=== PATIENT | male | born 1950 | race Caucasian/White ===

== ENCOUNTER 2016-11-16 01:17 | Inpatient (IN) | payer OTHER ==
--- NOTE | ~2016-11-16 | CN ---
Consultation Report [facility] [address] [place]. [address] NAME: BRAULIO PETER : 50 STATUS : ADM Kristin PAT#: [id number] AGE: 66 ADM/REG DATE : 11/16/16 MR#: [id number] REPORT SERV DATE: 11/16/16 DICTATED BY: DATE: REPORT STATUS : Draft TRANSCRIBED BY: MODL DATE: 11/16/16 NEUROLOGY CONSULTATION DATE OF CONSULTATION: 11/16/2016 REASON FOR CONSULT: Possible stroke. HISTORY OF PRESENT ILLNESS: This is a 66-year-old male who presented to [facility] secondary to left upper extremity weakness, where the patient reports the symptoms started roughly 1800 hours on 11/15/2016. Reports there is some improvement of the symptoms after onset since the hospitalization. Denies any numbness and denies any lower extremity involvement. Denies any more significant difficulty walking and denies any more significant dysarthria, and denies any numbness or weakness in the face. The patient denies any language difficulties and denies any worsening vision difficulties. The patient does have history of previous stroke with resulting left hemiparesis. Secondary to that, the patient normally ambulates with a walker as well as wheelchair. The patient denies any recent illness, fever, chills, nausea, vomiting, chest pain, or shortness of breath. The patient reports compliance with medication and denies any recent medication changes. PAST MEDICAL HISTORY: Significant for type 2 diabetes, as well as a history of stroke in the past with left-sided hemiparesis, previous history of TIA, history of hypertension, coronary artery disease, status post coronary artery bypass surgery, as well as a history of prostate cancer. SOCIAL HISTORY: Denies tobacco, alcohol, recreational drug usage. FAMILY HISTORY: Significant for diabetes, stroke, prostate cancer. ALLERGIES: AT THE TIME OF EVALUATION, THE PATIENT REPORTS ALLERGY TO CIPROFLOXACIN WELL AN IODINE CONTRAST DYE AND IBUPROFEN. MEDICATIONS: The patient was noted to have home medications that consist of aspirin, Plavix, fenofibrate, Proscar, Prozac, Neurontin, [place], Toujeo, Humalog, Imdur, Cozaar, Glucophage, Toprol, Flomax, Restoril, vitamin C, vitamin B12. REVIEW OF SYSTEMS: Negative except for those mentioned in the HPI. PHYSICAL EXAMINATION: VITAL SIGNS: Since the hospital admission, the patient was noted to have vital signs with T max of 98.2, heart rate of 64, respirations of 16, blood pressure of 126/65. GENERAL: The patient is well developed, well nourished, in no acute distress. CARDIOVASCULAR: Regular rate and rhythm. No carotid bruits were otherwise auscultated. PULMONARY: Clear to auscultation bilaterally. Consultation Report [address] [place]. [address] NAME: BRAULIO PETER : 50 STATUS : ADM Kristin PAT#: [id number] AGE: 66 ADM/REG DATE : 11/16/16 MR#: [id number] REPORT SERV DATE: 11/16/16 DICTATED BY: DATE: REPORT STATUS : Draft TRANSCRIBED BY: MODRenee DATE: 11/16/16 NEUROLOGICAL: Generally, the patient is alert, oriented to person, place, year, month, and follows simple and 2-step commands. Mild dysarthria was noted. No significant aphasia was noted. Intact registration and some difficulty with recall. Cranial nerves II through XII, pupils equal, round, and reactive to light. Extraocular eye movement was noted to be intact. Intact peripheral vision. No visual neglect was noted. The patient was noted to have decreased nasolabial fold on the left as well as a mild left-sided weakness. Otherwise, the tongue was mildly deviated to the right. Symmetrical facial sensation according to the patient. Mild decreased hearing in bilateral ears. The patient demonstrated 5/5 right upper and right lower extremity strength. Otherwise, the patient noted to have 4/5 left lower extremity strength and 4-/5 left upper extremity strength. Reports symmetrical sensation bilaterally. Deep tendon reflex was 3+ in the left upper and left lower extremity, and 2+ to 3 in the right upper and right lower extremity. Upgoing toe and bilateral plantar reflexes. Normal kiwxbx-of-xdph examination without ataxia in the right upper extremity. The patient normally ambulates with a walker or a wheelchair, as a result, gait evaluation was not performed. LABORATORY STUDIES: At the time of evaluation demonstrated sodium of 140, potassium 4.1, chloride 108, bicarb 22, BUN of 18, creatinine 0.93, glucose of 283, calcium of 8.5, magnesium 1.8. White blood cell count of 6.7, hemoglobin of 12.5, hematocrit of 36.5, and platelet count of 210. CT scan of the brain demonstrated subtle hypoattenuation in the right parietal area subcortically, bilateral basal ganglia calcification was noted, and possible atherosclerotic disease in vertebrobasilar system, mild generalized atrophy was otherwise seen. IMPRESSION: Left upper extremity weakness, symptoms improving. NIH stroke scale of 4 with symptom onset at 1800 hours on 11/15/2016. Concern for possible stroke. We will continue aspirin, Plavix, as well as a statin. Physical therapy and occupational therapy. We will obtain MRI of the brain as well as MRA of the head and neck for evaluation. Echocardiogram which is pending. We will also obtain fasting lipid panel and hemoglobin A1c with morning labs. RECOMMENDATIONS: 1. Fasting lipid panel and hemoglobin A1c. 2. PT/OT. 3. MRI of the brain, which is pending. 4. MRA of the head and neck, which is also pending. 5. Echocardiogram. 6. We will continue aspirin, Plavix, as well as the statin. [facility]/CHANTELL Claude Paulino MD Consultation Report [address] [address] NAME: BRAULIO PETER : 50 STATUS : ADM Kristin PAT#: [id number] AGE: 66 ADM/REG DATE : 11/16/16 MR#: [id number] REPORT SERV DATE: 11/16/16 DICTATED BY: DATE: REPORT STATUS : Draft TRANSCRIBED BY: CHANTELL DATE: 11/16/16 / [id number] CC: Jesus Johnson M.D. Edgardo Melendez M.D.
--- NOTE | ~2016-11-16 | HP ---
History And Physical [address] [place]. [address] NAME: BRAULIO HILL : 50 STATUS : ADM Kristin PAT#: [id number] AGE: 66 ADM/REG DATE : 11/16/16 MR#: [id number] REPORT SERV DATE: 11/16/16 DICTATED BY: JULIUS ESCALERA DATE: 11/16/16 REPORT STATUS : Draft TRANSCRIBED BY: MODL DATE: 11/16/16 DATE OF ADMISSION: 11/16/2016 CHIEF COMPLAINT: Left arm weakness. HISTORY OF PRESENT ILLNESS: This is a 66-year-old male with history of diabetes mellitus, essential hypertension, and a prior history of left-sided CVA who presents to the emergency room at [facility] with the above-mentioned complaint. History is obtained from Mr. Hill, his family who is at bedside, and reviewing data available on the [employer] system. According to Mr. Hill, he was watching television around 1800 hours yesterday in the evening when he got up to go somewhere in his house and found that he was unable to move his left arm. This was not preceded by any significant event and he thought he might have done something to the arm. He told his he needed a heating pad and tried to relieve himself. Unfortunately, there was profound weakness in the arm. He could not even raise it and finally the family was able to convince him to come to the emergency room to be evaluated. Again, he did have little headache but according to him this was not unusual. He did not have any chest pains or falls or syncopal episodes or any other symptoms associated with this. In the emergency room, initial workup revealed an unremarkable CT scan of the brain and chest. EKG was unremarkable without any new changes. He had uncontrolled diabetes with hyperglycemia. His left arm symptoms continued and Hospitalist Service is asked to admit him for further evaluation and treatment. Unfortunately, he presented to the ER about 0100 hours which was well outside the window of opportunity. At the time of my evaluation, he denied any chest pain, palpitations, or orthopnea. He had no cough, hemoptysis, night sweats, or weight loss. He has had no falls or loss of consciousness. No history of fevers, chills, nausea, vomiting, diarrhea. No history of recent hematemesis, hematochezia, or hematuria. No other history of recent travel or exposures. PAST MEDICAL HISTORY: Significant for history of diabetes mellitus type 2, history of CVA in the past with residual left-sided weakness both in his upper and lower extremities, history of essential hypertension, coronary artery disease with myocardial infarction, status post CABG. He also has a history of prostate cancer, status post external beam radiation therapy. SOCIAL HISTORY: He does not smoke, does not use alcohol or recreational drugs. FAMILY HISTORY: Noncontributory. MEDICATIONS: At home were reviewed by me in the chart today and reordered by me. History And Physical [address] [address] NAME: BRAULIO HILL : 50 STATUS : ADM Kristin PAT#: [id number] AGE: 66 ADM/REG DATE : 11/16/16 MR#: [id number] REPORT SERV DATE: 11/16/16 DICTATED BY: JULIUS ESCALERA DATE: 11/16/16 REPORT STATUS : Draft TRANSCRIBED BY: CHANTELL DATE: 11/16/16 REVIEW OF SYSTEMS: As in history of present illness. All other systems were reviewed in detail and are quite unremarkable. PHYSICAL EXAMINATION: GENERAL: This is a pleasant 66-year-old, not in any acute distress. HEENT: His head is atraumatic, normocephalic. He is alert, awake, oriented to time, place, and person. Pupils are equal, reacting to light and accommodating. External ocular muscles are intact. Membranes are moist and pink. Sclerae are nonicteric. NECK: Supple with no jugular venous distention, lymphadenopathy, or thyromegaly. LUNGS: Clear to auscultation with no wheezes, rubs, or crackles. HEART: Heart sounds were regular with no murmurs, rubs, or gallops. ABDOMEN: Soft, nontender. Bowel sounds are present. EXTREMITIES: No cyanosis, clubbing, or edema. The left upper extremity showed marked weakness. He was unable to raise the extremity or the arm off the bed. He was able to move his forearm towards his face but was difficult to raise it above his shoulder level. His left lower extremity had no new weakness. Speech was not affected today. Higher functions appeared intact. VITAL SIGNS: His vital signs today showed a temperature of 98.4, pulse 66, and respirations were 19 a minute, blood pressure was 132/71, oxygen saturations were 98%, breathing 2 L of oxygen via nasal cannula. LABORATORY DATA: Reviewed on the [employer] system showed normal CMP with a blood glucose of 347. Liver numbers appeared within normal limits. Troponin was 0.02. CBC showed a normal white blood cell count of 6700, hemoglobin was 12.5, hematocrit 36.5, and platelet count was 210,000. Films of the chest x-ray and CT scan of the brain were reviewed by me on the PACS today and interpreted by me. Per my interpretation, the chest x-ray did not show any lobar consolidations or pleural effusions. CT of the brain did not show any acute intracranial process at this time. 12-lead EKG done in the emergency room was reviewed and interpreted by me. There is normal sinus rhythm with a rate of 71 and has a left anterior fascicular block. IMPRESSION: 1. Acute left-sided weakness. 2. Cerebrovascular accident. 3. Diabetes mellitus type 2 with hyperglycemia. 4. History of prior cerebrovascular accident. 5. Essential hypertension. 6. Coronary artery disease with history of myocardial infarction, status post CABG. 7. History of prostate cancer. PLAN: We will admit Mr. Hill to the Hospitalist Service with Telemetry for close monitoring. We will follow non-tPA stroke orders, consult Neurology Service to see him in the morning. Unfortunately, he is outside the window of opportunity for any thrombolytic treatment. We will treat him conservatively. Meanwhile, we will go ahead and get an MRI and an MRA of his brain and also an echocardiogram. He is on aspirin which we will make to History And Physical [address] [address] NAME: BRAULIO HILL : 50 STATUS : ADM Kristin PAT#: [id number] AGE: 66 ADM/REG DATE : 11/16/16 MR#: [id number] REPORT SERV DATE: 11/16/16 DICTATED BY: JULIUS ESCALERA DATE: 11/16/16 REPORT STATUS : Draft TRANSCRIBED BY: MODRenee DATE: 11/16/16 a full dose. Continue his Plavix and statins and other therapy. We will also start him on blood sugar control with NovoLog insulin given subcutaneously. He will be on unfractionated heparin for DVT prophylaxis while he is here. I have discussed the above plans with the patient and his family. Their questions were answered. They are agreeable to the above recommendations. Hospitalist Service will be following him during his stay here. /CHANTELL Julius Escalera M.D. / [id number] CC: MD Edgardo Padilla M.D.
--- NOTE | ~2016-11-16 | DS ---
Discharge Summary [facility] [address] [facility] [place]. [address] NAME: BRAULIO PETER : 50 STATUS : DIS IN PAT#: [id number] AGE: 66 ADM/REG DATE : 11/16/16 MR#: [id number] REPORT SERV DATE: 11/22/16 DICTATED BY: CHELSEY TANG DATE: 11/21/16 REPORT STATUS : Draft TRANSCRIBED BY: MODL DATE: 11/21/16 ADMISSION DATE: 11/16/2016 DISCHARGE DATE: 11/21/2016 The patient is a 66-year-old male with a history of hypertension, diabetes, CVA in the pontine region, who presented to the emergency room with a complaint of left weakness. For further details, please refer to H and P dictated by Dr. Mcfadden on 11/16/2016. HOSPITAL COURSE: Upon presentation to the emergency room, the patient was noted to have symptoms consistent with an acute stroke. Brain MRI and CT was obtained and Neurology was consulted. For further details, please refer to the neurology consultation note dictated on 10/10/2016. I assumed care of the patient on 11/20/2016. At the time of my assumption of care, the patient was hemodynamically stable. He did have residual left sided weakness. The patient had been started on appropriate medications by Neurology and he was awaiting placement in a rehab facility. At rehab, the patient has received insurance approval for rehab facility. Given his hemodynamics stability completion of workup, the patient will be discharged to rehab for the next phase of his management. Plan has been discussed with the patient who voices understanding and is agreeable with this plan. DISCHARGE DIAGNOSES: 1. CVA right medullary infarction. 2. Diabetes type 2. 3. Hypertension. DISCHARGE EXAMINATION: VITAL SIGNS: Blood pressure 110/67, pulse of 64, respirations 16, O2 saturation 96% on room air, temperature 97.8. GENERAL: The patient lying in bed, in no acute distress. Left-sided weakness observed. HEENT: Normocephalic and atraumatic. Extraocular motors intact. The patient has symmetric facial features. NECK: Trachea is midline and symmetric. No JVD. No thyromegaly noted. CHEST: Nontender to palpation. CARDIOVASCULAR: Regular rate and rhythm. S1, S2. I did not appreciate any murmurs. LUNGS: Clear to auscultation bilaterally. The patient has no added breath sounds. ABDOMEN: Obese. Positive bowel sounds. Nontender. Nondistended. EXTREMITIES: No cyanosis, no clubbing. No edema. NEURO: Alert and oriented x3. Left-sided weakness noted in the upper and lower extremities. DISCHARGE MEDICATIONS: Ascorbic acid 1000 mcg p.o. daily, aspirin 325 mg p.o. daily, Atorvastatin 80 mg p.o. daily, Plavix 75 mg p.o. daily, vitamin B12 1000, docusate 200 mg p.o. twice a day, fenofibrate 160 mg p.o. daily, finasteride 5 mg p.o. daily, Prozac 20 mg p.o. daily, gabapentin 900 mg p.o. at bedtime, gabapentin 600 mg p.o. every morning, Toujeo 65 units subcu at bedtime, isosorbide mononitrate 50 mg p.o. at bedtime, losartan 100 mg p.o. daily, mag ox 800 mg p.o. twice a day, Toprol-XL 25 mg p.o. twice a, pantoprazole 40 mg p.o. at breakfast, and Flomax 0.4 mg p.o. daily. Discharge Summary [address] [address] NAME: BRAULIO PETER : 50 STATUS : DIS IN PAT#: [id number] AGE: 66 ADM/REG DATE : 11/16/16 MR#: [id number] REPORT SERV DATE: 11/22/16 DICTATED BY: CHELSEY TANG DATE: 11/21/16 REPORT STATUS : Draft TRANSCRIBED BY: CHANTELL DATE: 11/21/16 IMAGING STUDIES: 1. Brain CT without contrast. Impression: Cogl-fs-swkqtbre generalized atherosclerotic changes identified. No evidence of definite acute infection. There is a subtle area of bridging with sulci on the right, see imaging studies. This could conceivably represent a small subcortical infarction, bony calvarium unremarkable, heavy atherosclerotic changes, vertebral basilar artery. A preliminary report was sent. 2. Carotid Doppler. Impression: Left carotid demonstrate category 1 less than 50% stenosis. Right carotid is not visible suggesting atherosclerotic blockages and may also be congenital congenitally underdeveloped. Right subclavian velocity 93 cm/second. The left ventricular grade subclavian velocity 120 cm/sec. 3. A KYLER with ejection fraction of 55-65% performed on 11/16/2016. 4. MRI/MRA head without contrast stroke protocol. 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 No evidence of cut off in the mean basilar luminal stenosis or stenosis is seen. MRI of brain. 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 DISPOSITION: The patient will be discharged to [facility] for rehab. ACTIVITY: As tolerated. DIET: Diabetic diet. Greater than 30 minutes was spent on counseling, coordinating discharge, dictation of note, medication reconciliation, writing prescription. [facility]/CHANTELL Chelsey Tang MD / [id number] CC: MD Edgardo Warner M.D.
--- NOTE | ~2016-11-16 | OP ---
Record Of [facility] [address] [place]. [address] NAME: BRAULIO HILL : 50 STATUS : ADM IN PAT#: [id number] AGE: 66 ADM/REG DATE : 11/16/16 MR#: [id number] REPORT SERV DATE: 11/19/16 DICTATED BY: MICHI ALBERT DATE: 11/19/16 REPORT STATUS : Draft TRANSCRIBED BY: CHANTELL DATE: 11/19/16 DATE OF PROCEDURE: 11/19/2016 PREOPERATIVE DIAGNOSIS: 1. Recent right hemispheric stroke. 2. Discrepant study results with MRA suggestive of high-grade right internal carotid artery stenosis and ultrasound suggesting a ultipt-ge-to right carotid artery stenosis. POSTOPERATIVE DIAGNOSIS: 1. Recent right hemispheric stroke. 2. No right carotid stenosis. PROCEDURE: 1. Ultrasound-guided percutaneous access, right common femoral artery. 2. Arch aortogram. 3. Selective catheterization of the right common carotid artery with right carotid arteriogram. SURGEON: Michi Albert M.D. VALIDATION INTERN: [place]. ANESTHESIA: Local with MAC. ESTIMATED BLOOD LOSS: 10 mL. CONTRAST: 51 mL. IV FLUIDS: 800 mL. COMPLICATIONS: None. INDICATION: Mr. Hill is a pleasant 66-year-old man admitted to the hospital with a recent right hemispheric stroke. He underwent an MRA that suggested a high-grade ulcerated plaque. He had a carotid ultrasound, however that was suggestive of little to no carotid stenosis on the right. He is brought for arteriogram for definitive diagnosis with stent placed in the right carotid artery if needed. DETAILS OF PROCEDURE: After informed consent was obtained, the patient was brought to the endovascular suite and placed in supine position. After administration of IV sedation, he was prepped and draped in the usual sterile fashion. A time-out was performed. I commenced the procedure of ultrasound-guided percutaneous access of the right common femoral artery. This was done after anesthetizing the right groin with local anesthetic. A permanent image of the artery documenting patency was saved and stored in the patient's chart. I accessed with a micropuncture needle and passed a micropuncture wire and confirmed within the artery under fluoro. I then upsized to a 5-Pakistani sheath over a Bentson wire. The Bentson wire Record Of [place] [address] [facility] [place] [place]. [address] NAME: BRAULIO HILL : 50 STATUS : ADM IN PAT#: [id number] AGE: 66 ADM/REG DATE : 11/16/16 MR#: [id number] REPORT SERV DATE: 11/19/16 DICTATED BY: MICHI ALBERT. DATE: 11/19/16 REPORT STATUS : Draft TRANSCRIBED BY: MODL DATE: 11/19/16 and [place] flush catheter were advanced to the aortic arch. We systemically heparinized. I then performed an arch aortogram that shows a patent nonaneurysmal aortic arch. There is normal arch vessel configuration. It is a type 1 arch. The origins of the innominate left carotid and the left subclavian artery were widely patent with no stenosis. 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 After that, we used a Glidewire and a vertebral catheter to engage the innominate and then the right common carotid artery. Right carotid arteriogram was performed which showed a widely patent common carotid artery with no stenosis. The bifurcation was patent in multiple views with no stenosis whatsoever or thrombus or ulceration. External carotid artery is widely patent as well. The internal carotid artery is also patent with no plaque, stenosis, thrombus, or ulceration. Intracranial views of the internal carotid artery also showed a patent artery with no stenosis. After that, wires and catheters were removed. The right femoral access was closed with ProGlide closure device. The patient tolerated the procedure well without complications. I was present for this entire case as dictated. [facility]/CHANTELL Michi Albert M.D. / [id number] CC: Munir Caro M.D.
[~2016-11-16 01:17] MED LIST: ACET500CAP PO; ADVIL PO; ASAB PO; AVANDAMET1 TA4 PO; COZAAR100 MG PO; CYANO1000T PO; DIOVAN HC2 PO; DURICEF PO; FLOMAX4 PO; FORTAMET500 MG PO; GLUCOPHAGE1000 MG PO; HUMALOG SC; ISOSORBIDE 30 MG PO; LANTUS SC; LEVEMIR SC; LIPITOR40 PO; LOFIBRA160 MG PO; LOP25 PO; LORTAB10 PO; NEUR300 PO; NEUR600 PO; NOVOLOG SC; PERCOCET1 TA4 PO; PLAVIX PO; PRINZIDE1 TA1 PO; PROZAC PO; REST15 PO; TOPXL25 PO; TOUJEO SC; VITAMIN D31000 UNIT PO; VITC500 PO; VYTORIN 10/80 T1 TAB PO; ZOCOR40 PO; ZOL100 PO
[2016-11-16 01:56] LABS: BASOPHILS 0.9 %; BASOPHILS ABSOLUTE 0.06 10/3/uL (0.0-0.16); EOSINOPHILS 2.4 %; EOSINOPHILS ABSOLUTE 0.16 10/3/uL (0.0-0.53); ER CBC TAT 0 Hrs 09 Mins; HEMATOCRIT 36.5 % (40.0-51.0); HEMOGLOBIN 12.5 g/dL (13.6-17.8); IMMATURE GRANULOCYTES 0.7 %; IMMATURE GRANULOCYTES ABSOLUTE 0.05 10/3/uL (0.0-0.11); LYMPHOCYTES 35.4 %; LYMPHOCYTES ABSOLUTE 2.38 10/3/uL (0.67-4.30); MEAN CORPUS HGB CONC 34.2 g/dL (32.0-36.0); MEAN CORPUSCULAR HEMOGLOB 28.7 pg (26.0-34.0); MEAN CORPUSCULAR VOLUME 83.9 fL (80-100); MEAN PLATELET VOLUME 10.8 fL (9.2-13.0); MONOCYTES 5.9 %; NEUTROPHILS 54.7 %; NEUTROPHILS ABSOLUTE 3.68 10/3/uL (2.02-8.40); PLATELET COUNT 210 10/3/uL (150-400); RBC DISTRIBUTION WIDTH 13.9 % (12.0-16.0); RED CELL COUNT 4.35 10/6/uL (4.7-6.1); WHITE BLOOD CELLS 6.7 10/3/uL (4.5-10.5)
[2016-11-16 01:57] LABS: MANUAL DIFF NO %
[2016-11-16 03:06] LABS: INTERNATIONAL NORMAL RATI 1.2 UNITS (-); PARTIAL THROMBO TIME 28.4 SEC (22.5-37.2); PROTIME (NOT ORD) 14.7 SEC (12.0-14.5)
[2016-11-16 03:14] LABS: ALBUMIN 3.4 G/DL (3.5-5.0); CALCIUM, SERUM 8.8 MG/DL (8.5-10.4); CHLORIDE, SERUM 107 MMOL/L (96-112); CO2 (CARBON DIOXIDE) 24 MMOL/L (24-34); CREATININE 1.02 MG/DL (0.70-1.30); GFR AFRICAN AMERICAN 88 ML/MIN (>=60); GFR NON AFRICAN AMERICAN 76 ML/MIN (>=60); GLOBULIN 3.3 G/DL (2.5-4.1); POTASSIUM, SERUM 4.2 MMOL/L (3.5-5.3); SGOT(AST) 18 U/L (5-40); SGPT(ALT) 40 U/L (5-65); SODIUM, SERUM 141 MMOL/L (135-148); TOTAL BILIRUBIN 0.2 MG/DL (0-1.2); TOTAL PROTEIN 6.7 G/DL (6.0-8.5); TROPONIN I <0.02 NG/ML (<0.05)
[2016-11-16 03:26] LABS: ALKALINE PHOSPHATASE 49 U/L (45-117); BUN (BLOOD UREA NITROGEN) 20 MG/DL (6-23); GLUCOSE, SERUM 347 MG/DL (60-99)
[2016-11-16] MEDS ORDERED: VITC500 PO (04:21)
[2016-11-16] MEDS ORDERED: VITAMIN B-121000 MC1 SL (04:22)
[2016-11-16] MEDS ORDERED: NEUR300 PO (04:22)
[2016-11-16] MEDS ORDERED: GLUCPH PO (04:23)
[2016-11-16] MEDS ORDERED: TOPXL25 PO (04:24)
[2016-11-16] MEDS ORDERED: LIPITOR40 PO (04:25)
[2016-11-16] MEDS ORDERED: LOFIB160 PO (04:25)
[2016-11-16] MEDS ORDERED: COZAAR100 MG PO (04:25)
[2016-11-16] MEDS ORDERED: REST15 PO (04:26)
[2016-11-16] MEDS ORDERED: PLAVIX PO (04:26)
[2016-11-16] MEDS ORDERED: NORCO1 TAB PO (04:27)
[2016-11-16] MEDS ORDERED: ASAB PO (04:28)
[2016-11-16] MEDS ORDERED: IMDUR30 PO (04:28)
[2016-11-16] MEDS ORDERED: PROZAC PO ×2 (04:28→04:29)
[2016-11-16] MEDS ORDERED: TOUJEO SC (04:29)
[2016-11-16] MEDS ORDERED: PROSCAR5 PO (04:29)
[2016-11-16] MEDS ORDERED: FLOMAX4 PO (04:29)
[2016-11-16] MEDS ORDERED: HUMALOGPEN SC (04:29)
[2016-11-16 09:09] LABS: BUN (BLOOD UREA NITROGEN) 18 MG/DL (6-23); CALCIUM, SERUM 8.5 MG/DL (8.5-10.4); CHLORIDE, SERUM 108 MMOL/L (96-112); CO2 (CARBON DIOXIDE) 22 MMOL/L (24-34); CREATININE 0.93 MG/DL (0.70-1.30); GFR AFRICAN AMERICAN 99 ML/MIN (>=60); GFR NON AFRICAN AMERICAN 85 ML/MIN (>=60); GLUCOSE, SERUM 283 MG/DL (60-99); PHOSPHORUS, SERUM 2.7 MG/DL (2.5-4.5); POTASSIUM, SERUM 4.1 MMOL/L (3.5-5.3); SODIUM, SERUM 140 MMOL/L (135-148)
[2016-11-16 09:52] LABS: ASCORBIC ACID (UR NOT ORDER) 20 (NEG); BILIRUBIN, URINE NEGATIVE (NEG); KETONE, URINE NEGATIVE (NEG); LEUKOCYTE ESTERASE(NOT OR NEG (NEG); WBC (NOT ORDERED) (RFLEX) 2 (0-5)
[2016-11-17 05:50] LABS: CHOL/HDL RATIO(NOT ORDER) 5.5 (0-5)
[2016-11-18] MEDS ORDERED: FORTAMET500 MG PO (15:17)
[2016-11-18] MEDS ORDERED: NEUR600 PO (15:24)
[2016-11-18] MEDS ORDERED: DIABETIC FOOT CREAM TOP (15:26)
[2016-11-18] MEDS ORDERED: LIPITOR40 PO (15:26)
[2016-11-18] MEDS ORDERED: ACET500CAP PO (15:29)
[2016-11-18] MEDS ORDERED: NITROSTAT0.4 MG SL (15:30)
[2016-11-19 05:32] LABS: BASOPHILS 0.5 %; BASOPHILS ABSOLUTE 0.03 10/3/uL (0.0-0.16); EOSINOPHILS 3.4 %; EOSINOPHILS ABSOLUTE 0.22 10/3/uL (0.0-0.53); HEMATOCRIT 36.5 % (40.0-51.0); HEMOGLOBIN 12.5 g/dL (13.6-17.8); IMMATURE GRANULOCYTES 1.1 %; IMMATURE GRANULOCYTES ABSOLUTE 0.07 10/3/uL (0.0-0.11); LYMPHOCYTES ABSOLUTE 2.56 10/3/uL (0.67-4.30); MEAN CORPUS HGB CONC 34.2 g/dL (32.0-36.0); MEAN CORPUSCULAR HEMOGLOB 29.1 pg (26.0-34.0); MEAN CORPUSCULAR VOLUME 84.9 fL (80-100); MEAN PLATELET VOLUME 10.4 fL (9.2-13.0); MONOCYTES 6.3 %; NEUTROPHILS 48.7 %; NEUTROPHILS ABSOLUTE 3.12 10/3/uL (2.02-8.40); PLATELET COUNT 220 10/3/uL (150-400); RBC DISTRIBUTION WIDTH 13.9 % (12.0-16.0); RETICULOCYTE COUNT 3.1 % (0.5-2.5); RETICULOCYTE COUNT ABSOLUTE 131.6 10/3/uL (20.2-119.8); WHITE BLOOD CELLS 6.4 10/3/uL (4.5-10.5)
[2016-11-19 05:35] LABS: MANUAL DIFF NO %
[2016-11-19 06:09] LABS: CHLORIDE, SERUM 108 MMOL/L (96-112); CO2 (CARBON DIOXIDE) 25 MMOL/L (24-34); CREATININE 0.89 MG/DL (0.70-1.30); FERRITIN 74 NG/ML (26-388); GFR AFRICAN AMERICAN 103 ML/MIN (>=60); GFR NON AFRICAN AMERICAN 89 ML/MIN (>=60); SODIUM, SERUM 142 MMOL/L (135-148)
[2016-11-19 06:16] LABS: % IRON SAT 25 % (20-50); IRON BINDING CAPACITY 322 MCG/DL (250-450); IRON, SERUM 82 MCG/DL (35-150); POTASSIUM, SERUM 4.1 MMOL/L (3.5-5.3)
[2016-11-19 06:17] LABS: BUN (BLOOD UREA NITROGEN) 13 MG/DL (6-23); GLUCOSE, SERUM 139 MG/DL (60-99)
[2016-11-20 08:07] LABS: BUN (BLOOD UREA NITROGEN) 13 MG/DL (6-23); CALCIUM, SERUM 8.5 MG/DL (8.5-10.4); CHLORIDE, SERUM 107 MMOL/L (96-112); CO2 (CARBON DIOXIDE) 23 MMOL/L (24-34); GFR AFRICAN AMERICAN 103 ML/MIN (>=60); GFR NON AFRICAN AMERICAN 89 ML/MIN (>=60); POTASSIUM, SERUM 4.2 MMOL/L (3.5-5.3); SODIUM, SERUM 140 MMOL/L (135-148)
[2016-11-20 08:22] LABS: GLUCOSE, SERUM 210 MG/DL (60-99)
[2016-11-21 06:05] LABS: BASOPHILS 0.8 %; BASOPHILS ABSOLUTE 0.05 10/3/uL (0.0-0.16); EOSINOPHILS 3.2 %; HEMATOCRIT 37.3 % (40.0-51.0); HEMOGLOBIN 12.6 g/dL (13.6-17.8); IMMATURE GRANULOCYTES ABSOLUTE 0.06 10/3/uL (0.0-0.11); LYMPHOCYTES 37.5 %; LYMPHOCYTES ABSOLUTE 2.33 10/3/uL (0.67-4.30); MEAN CORPUS HGB CONC 33.8 g/dL (32.0-36.0); MEAN CORPUSCULAR HEMOGLOB 29.2 pg (26.0-34.0); MEAN CORPUSCULAR VOLUME 86.3 fL (80-100); MEAN PLATELET VOLUME 10.6 fL (9.2-13.0); MONOCYTES 6.8 %; MONOCYTES ABSOLUTE 0.42 10/3/uL (0.21-1.20); NEUTROPHILS 50.7 %; NEUTROPHILS ABSOLUTE 3.16 10/3/uL (2.02-8.40); PLATELET COUNT 216 10/3/uL (150-400); RBC DISTRIBUTION WIDTH 14.1 % (12.0-16.0); RED CELL COUNT 4.32 10/6/uL (4.7-6.1); WHITE BLOOD CELLS 6.2 10/3/uL (4.5-10.5)
[2016-11-21 06:19] LABS: A/G RATIO 0.9 (0.7-1.9); ALBUMIN 3.2 G/DL (3.5-5.0); ALKALINE PHOSPHATASE 46 U/L (45-117); BUN (BLOOD UREA NITROGEN) 13 MG/DL (6-23); CALCIUM, SERUM 8.8 MG/DL (8.5-10.4); CHLORIDE, SERUM 105 MMOL/L (96-112); CO2 (CARBON DIOXIDE) 25 MMOL/L (24-34); CREATININE 0.85 MG/DL (0.70-1.30); GFR AFRICAN AMERICAN 105 ML/MIN (>=60); GFR NON AFRICAN AMERICAN 91 ML/MIN (>=60); GLOBULIN 3.5 G/DL (2.5-4.1); GLUCOSE, SERUM 200 MG/DL (60-99); POTASSIUM, SERUM 4.2 MMOL/L (3.5-5.3); SGOT(AST) 22 U/L (5-40); SGPT(ALT) 47 U/L (5-65); SODIUM, SERUM 139 MMOL/L (135-148); TOTAL BILIRUBIN 0.3 MG/DL (0-1.2); TOTAL PROTEIN 6.7 G/DL (6.0-8.5)
[2016-11-21 06:21] LABS: MANUAL DIFF NO %
[2017-04-17] MEDS ORDERED: CRESTOR40 MG PO (13:47)
[2017-04-17] MEDS ORDERED: ASA5GR PO (13:48)
[2017-04-17] MEDS ORDERED: HUMALOG SC (13:51)
[2017-04-17] MEDS ORDERED: TRESIBA FL100 UNIT/1 SC (13:52)
== END 2016-11-21 18:23 | DRG 62 ==
LOC: ER 01:17 → 2SO 04:15 → SDC/OF 11-19 15:49 → 2SO 11-19 17:16
PROVIDERS: Hospitalist; Internal Medicine; Internal Medicine Pulmonary Disease; Nurse Practitioner; Psychiatry & Neurology Neurology; Surgery
PROC: 3E08317 Introduction of Other Thrombolytic into Heart, Percutaneous Approach (ICD-10-PCS; 2016-11-16)
PROC: B410ZZZ Fluoroscopy of Abdominal Aorta (ICD-10-PCS; 2016-11-19)
PROC: B3131ZZ Fluoroscopy of Right Common Carotid Artery using Low Osmolar Contrast (ICD-10-PCS; 2016-11-19)
PROC: B246ZZ4 Ultrasonography of Right and Left Heart, Transesophageal (ICD-10-PCS; principal; 2016-11-19 14:15)
DX: I63.9 Cerebral infarction, unspecified (principal); G81.94 Hemiplegia, unspecified affecting left nondominant side; E11.42 Type 2 diabetes mellitus with diabetic polyneuropathy; I10 Essential (primary) hypertension; E11.65 Type 2 diabetes mellitus with hyperglycemia; I44.4 Left anterior fascicular block; F41.9 Anxiety disorder, unspecified; E11.40 Type 2 diabetes mellitus with diabetic neuropathy, unspecified; Z82.3 Family history of stroke; Z95.1 Presence of aortocoronary bypass graft; I25.2 Old myocardial infarction; Z85.46 Personal history of malignant neoplasm of prostate; Z92.3 Personal history of irradiation
CPT/HCPCS: 36222; 70450; 70544; 70548; 70551-52; 71010; 76937; 80048; 80053; 80061; 81001; 82607; 82728; 82962; 83036; 83540; 83550; 83735; 84100; 84484; 85025; 85045; 85610; 85730; 87641; 93005; 93306; 93880; 97110-GO; 97116-GP; 97161-GP; 97166-GO; 99285; A9270-GY; A9577; C1760; C1769; C1894; J0690; J1200; J2250; J2370; J2720; J3010; J3370; Q9966